=== PATIENT | male | born 1980 | race African-American/Black ===

== ENCOUNTER 2016-10-17 23:00 | Emergency (ER) | payer OTHER ==
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
[~2016-10-17 23:00] MED LIST: FLEXERIL10 MG PO; IMODIUM MS REL1 EAC1 PO; MOTRIN600 M1 PO; MOTRIN600 M2 PO; NO MEDICATIONS; PHENERGAN25 MG PO; ROBAXIN500 MG PO
== END 2016-10-18 00:14 | disposition home or self-care (01) ==
LOC: SED 23:00
DX: S43.401A Unspecified sprain of right shoulder joint, initial encounter (principal); V43.52XA Car driver injured in collision with other type car in traffic accident, initial encounter
CPT/HCPCS: 72100; 73030; 99284